=== PATIENT | female | born 1975 | race Caucasian/White ===

== ENCOUNTER 2021-05-17 04:44 | Day surgery (SDC) | payer OTHER ==
[2021-05-13 16:51] VITALS: BMI 18.7
[2021-05-17 12:06] VITALS: TEMP 97.3
[2021-05-17 14:22] VITALS: BP 105/51; PULSE 62
== END 2021-05-17 13:00 | disposition home or self-care (01) ==
LOC: JASU-ENDO 04:44
PROVIDERS: ATTEND Internal Medicine Gastroenterology
PROC: 0DJD8ZZ Inspection of Lower Intestinal Tract, Via Natural or Artificial Opening Endoscopic (ICD-10-PCS; principal; 2021-05-17 10:53)
DX: Z12.11 Encounter for screening for malignant neoplasm of colon (principal); Z86.010 Personal history of colon polyps; K63.89 Other specified diseases of intestine; Z87.19 Personal history of other diseases of the digestive system
CPT/HCPCS: 81025